=== PATIENT | male | born 1995 | race Caucasian/White ===

== ENCOUNTER 2016-05-24 06:33 | Emergency (ER) | payer MEDICAID ==
[2016-05-24] MEDS ORDERED: IBUPROFEN 200 MG TAB PO ONE ×2 (06:50→06:51)
--- NOTE | 2016-05-24 06:54 | EDPHY ---
HPI/HX/ROS/PE/MDM Narrative: CHIEF COMPLAINT: Sore throat, headache. HPI: The patient is a 20-year-old male who complains of sore throat that began 1.5 days ago. The pain is described as throbbing and he is having difficulty swallowing. It is the worst sore throat he has ever had. He admits associated headache and rhinorrhea. He denies abdominal pain, vomiting, diarrhea, fever, or other complaints. He has taken yolande-seltzer and over the counter cold medicine. REVIEW OF SYSTEMS: Aside from elements discussed in the HPI, a comprehensive 10-point review of systems was reviewed and is negative. PMH: Denies. SOCIAL HISTORY: Here alone. PHYSICAL EXAM: General: Patient is alert, in no acute distress. Speaking in normal voice. ENT: Eyes are normal to inspection. ENT inspection normal. No pharyngeal erythema, exudate, or swelling. No tonsillar asymmetry. Neck: Normal inspection. Full range of motion. Respiratory: No respiratory distress. Breath sounds normal bilaterally. Cardiovascular: Regular rate and rhythm. Strong peripheral pulses. Abdomen: The abdomen is nontender to palpation. There are no peritoneal signs. There are normal bowel sounds. Back: Normal to inspection. No tenderness to palpation. Skin: Normal color. No rash. Warm and dry. Extremities: Normal appearance. Full range of motion. Neuro: Oriented x3. Normal motor function. Normal sensory function. Portions of this note were transcribed by an ED scribe. I personally performed the history, physical exam, and medical decision making; and confirm the accuracy of the information in the transcribed note. ED Course: 20-year-old male presents with 1.5 days of sore throat. He has associated headache and cold symptoms. He is not febrile, vomiting, or having diarrhea. On exam his throat has a normal inspection. Abdomen is soft and non-tender. He is speaking in a normal voice. 800mg PO Motrin and 10mg PO Decadron administered. Strep swab obtained. Strep swab returns negative. He will be discharged home with PCP referral. MDM: This is a young healthy patient presents with 1 day of sore throat. On exam, he essentially has a normal pharyngeal exam. There is no evidence of peritonsillar abscess, epiglottitis or inability to tolerate fluids by mouth. His vital signs are normal. I treated him with oral Decadron here in the emergency department and have encouraged him to take ibuprofen and Tylenol as an outpatient. I do not think IV fluids nor blood tests are indicated at this point. - Data Points Laboratory Results: 05/24/16 05/24/16 Unknown 06:55 Group A Strep Screen NEGATIVE (NEGATIVE) Group A Strep DNA Pending Medications Given: Discontinued Medications Dexamethasone (Decadron Intensol) 10 mg PO EDNOW ONE Stop: 05/24/16 07:05 Last Admin: 05/24/16 07:16 Dose: 10 mg Ibuprofen (Motrin) 800 mg PO EDNOW ONE Stop: 05/24/16 06:51 Last Admin: 05/24/16 06:58 Dose: 800 mg General Time Seen by Provider: 05/24/16 06:48 Initial Vital Signs: Initial Vital Signs Temperature (C) 36.7 C 05/24/16 06:35 Heart Rate 68 05/24/16 06:35 Respiratory Rate 20 05/24/16 06:35 Blood Pressure 110/90 H 05/24/16 06:35 O2 Sat (%) 97 05/24/16 06:35 O2 Delivery Mode Room Air Allergies/Adverse Reactions: No Known Allergies Allergy (Unverified 05/24/16 06:35) Departure - Departure Disposition: Home, Routine, Self-Care Clinical Impression: Pharyngitis Qualifiers: Pharyngitis/tonsillitis etiology: unspecified etiology Qualified Code(s): J02.9 - Acute pharyngitis, unspecified Condition: Good Instructions: Pharyngitis (ED) Additional Instructions: Drink plenty of fluids and be sure to get rest. Take 600mg Ibuprofen every 6-8 hours as needed for pain and fever. Follow up with your primary care provider if symptoms are not improving in 3-4 days. If you need a PCP you were given the telephone number of the on-call provider. Return for any serious worsening of condition. Referrals: Dorcas Hernández DO [Doctor of Osteopathy] - As per Instructions Report Scribed for: Shimon Russell Report Scribed by: Luis Hamilton Date of Report: 05/24/16 Time of Report: 06:59
[2016-05-24] MEDS ORDERED: DEXAMETHASONE 1 MG/ML 30 ML BOTTLE PO ONE (07:04)
[2016-05-24] MEDS ORDERED: DEXAMETHASONE 4 MG TAB ONE (07:13)
[2016-05-24 07:24] VITALS: BP 127/68; PULSE 55; RESP 16; TEMP 98.4; O2SAT 93
== END 2016-05-24 07:24 | disposition home or self-care (01) ==
DX: J02.9 Acute pharyngitis, unspecified (principal)